=== PATIENT | male | born 1945 | race Caucasian/White ===

== ENCOUNTER 2016-12-24 10:57 | Emergency (ER) | payer MEDICARE, OTHER ==
[~2016-12-24] VITALS: Ht 175.3 cm; Wt 66.0 kg
[2016-12-24 11:03] VITALS: BP 112/70; PULSE 78; RESP 16; TEMP 97.9; O2SAT 97
--- NOTE | 2016-12-24 11:12 | PD ---
HPI Chief Complaint: Injury Time Seen by Provider: 11:10 Travel History International Travel<30 days: No Contact w/Intl Traveler<30days: No Traveled to known affect area: No History of Present Illness HPI [id number] male presents to emergency Department with right medial knee pain. Patient states he was up and moving this morning when he felt a pop when he twisted to one side and the right knee. He denies pain in this area which is worse with bearing weight. There is no significant effusion. No numbness tingling or other symptoms. He has no history of injury to this knee in the past. Pain currently is a 3 out of 10. Patient to 6 out of 10 with weightbearing. He has no known drug allergies. PFSH Past Medical History Hx Anticoagulant Therapy: No Cardiovascular Problems: Yes (PACEMAKER) Diabetes: No Social History Alcohol Use: Yes Tobacco Use: No Substance Use: No Allergies-Medications (Allergen,Severity, Reaction): Coded Allergies: No Known Allergies (Unverified , 12/24/16) Reported Meds & Prescriptions Reported Meds & Active Scripts Active Ibuprofen 600 Mg Tab 600 Mg PO Q6H PRN Reported Omeprazole 20 Mg Tab 20 Mg PO DAILY Review of Systems Except as stated in HPI: all other systems reviewed are Neg General / Constitutional: No: Fever Eyes: No: Visual changes HENT: No: Headaches Cardiovascular: No: Chest Pain or Discomfort Respiratory: No: Shortness of Breath Gastrointestinal: No: Abdominal Pain Genitourinary: No: Dysuria Musculoskeletal: No: Pain Skin: No Rash Neurologic: No: Weakness Psychiatric: No: Depression Endocrine: No: Polydipsia Hematologic/Lymphatic: No: Easy Bruising Physical Exam Narrative GENERAL: Patient appears no acute distress. SKIN: Warm and dry. Normal color. Normal turgor. No ecchymosis. HEAD: Atraumatic. Normocephalic. EYES: Pupils equal and round. No scleral icterus. No injection or drainage. ENT: No nasal bleeding or discharge. Mucous membranes pink and moist. NECK: Trachea midline. No JVD. CARDIOVASCULAR: Regular rate and rhythm. RESPIRATORY: No accessory muscle use. Clear to auscultation. Breath sounds equal bilaterally. GASTROINTESTINAL: Abdomen soft, non-tender, nondistended. Hepatic and splenic margins not palpable. MUSCULOSKELETAL: Extremities without clubbing, cyanosis, or edema. No obvious deformities. No significant effusion is noted in the right knee. Patient complains of pain along the medial joint line with extension and there is some valgus stress. Agata's is negative. NEUROLOGICAL: Awake and alert. No obvious cranial nerve deficits. Motor grossly within normal limits. Five out of 5 muscle strength in the arms and legs. Normal speech. PSYCHIATRIC: Appropriate mood and affect; insight and judgment normal. Data Data Last Documented VS Vital Signs Date Time Temp Pulse Resp B/P Pulse Ox O2 Delivery O2 Flow Rate FiO2 12/24/16 11:03 97.9 78 16 112/70 97 Orders Knee, Complete (4vws) (12/24/16 11:12) Ice/Cold Pack (12/24/16 11:12) ^ Knee Immobilizer (12/24/16 11:42) Crutches (12/24/16 11:48) MDM Medical Decision Making Medical Screen Exam Complete: Yes Emergency Medical Condition: Yes Differential Diagnosis Right knee sprain. Cartilage tear. Fracture. Narrative Course Patient is medically stable at time of exam. Ice packs applied to the right knee. X-ray of the right knee is ordered. X-ray shows no acute fracture, dislocation, or effusion. Per radiologist. Knee immobilizer was placed. Patient is given ibuprofen 600 mg 4 times a day when necessary pain. #40. Patient is to use ice and elevation and ambulate as tolerated with knee immobilizer crutches. Patient follow with his primary care physician in one week if symptoms are not improving. Patient can return with worsening symptoms as needed. Diagnosis Primary Impression: Right knee sprain Qualified Code: S83.91XA - Sprain of right knee, unspecified ligament, initial encounter Additional Impression: Right medial knee pain Referrals: Primary Care Physician Patient Instructions: General Instructions, Knee Immobilizer (ED), Knee Sprain (ED) Departure Forms: Work Release Special Instructions: Limited standing and walking for the next week. Additional Instructions: X-ray shows no acute fracture, dislocation, or effusion. Per radiologist. Knee immobilizer was placed. Patient is given ibuprofen 600 mg 4 times a day when necessary pain. #40. Patient is to use ice and elevation and ambulate as tolerated with knee immobilizer crutches. Patient follow with his primary care physician in one week if symptoms are not improving. Patient can return with worsening symptoms as needed. Med/Other Pt SpecificInfo: Prescription(s) given Scripts Ibuprofen 600 Mg [id number] Mg PO Q6H PRN (Pain/Inflammation) #40 TAB Prov:Renetta Conteh 12/24/16 Disposition: 01 DISCHARGE HOME Condition: Stable Rehan Kumar Dec 24, 2016 11:12
[2016-12-24] MEDS ORDERED: OMEP20TA PO (11:13)
[2016-12-24] MEDS ORDERED: IBUP-232 PO (11:43)
--- NOTE | 2016-12-24 11:55 | RADHPO ---
EXAM DATE/TIME: 12/24/2016 11:23 [facility] COMPARISON: No previous studies available for comparison. INDICATIONS : Right knee pain; twisted knee this morning. MEDICAL HISTORY : None. SURGICAL HISTORY : None. ENCOUNTER: Initial ACUITY: 1 day PAIN SCORE: 5/10 LOCATION: Right knee FINDINGS: Four view examination of the right knee demonstrates no evidence of fracture or dislocation. Bony mi neralization is normal. The articular surfaces are intact. There is mild fullness in the suprapatell ar bursa region consistent with joint effusion. CONCLUSION: Small joint effusion. Eliazar Sharp MD on December 24, 2016 at 11:53 Board Certified Radiologist. This report was verified electronically.
== END 2016-12-24 12:06 | disposition home or self-care (01) ==
LOC: PHEFT 10:57
DX: S83.91XA Sprain of unspecified site of right knee, initial encounter (principal); Z95.0 Presence of cardiac pacemaker; X50.1XXA Overexertion from prolonged static or awkward postures, initial encounter; Y93.9 Activity, unspecified; Y92.9 Unspecified place or not applicable; Y99.9 Unspecified external cause status
CPT/HCPCS: 73564; 99283; E0113; L1830

== ENCOUNTER 2017-11-04 09:55 | Observation (INO) | payer MEDICARE, OTHER ==
[~2017-11-04] VITALS: Ht 167.6 cm; Wt 56.0 kg
[~2017-11-04 09:55] MED LIST: IBUP-232 PO; OMEP20TA93 PO
[2017-11-04 10:06] VITALS: BP 134/67; PULSE 76; RESP 17; TEMP 98.4; O2SAT 98
[2017-11-04] MEDS ORDERED: GABA100C4 PO (10:41)
[2017-11-04] MEDS ORDERED: METO5TAB PO (10:41)
[2017-11-04] MEDS ORDERED: ZOFR8TAB PO (10:41)
[2017-11-04] MEDS ORDERED: FOLI400T PO (10:41)
[2017-11-04] MEDS ORDERED: PROC10TA PO (10:41)
[2017-11-04] MEDS ORDERED: METO25TA3 PO (10:41)
[2017-11-04] MEDS ORDERED: MAPA500T13 PO (10:41)
[2017-11-04] MEDS ORDERED: OXYC1CAP PO (10:41)
[2017-11-04] MEDS ORDERED: XARE15TA PO (10:42)
--- NOTE | 2017-11-04 11:06 | RADRPT ---
EXAM DATE/TIME: 11/04/2017 10:45 [facility] COMPARISON: No previous studies available for comparison. INDICATIONS : Vomiting post chemotherapy for mesothelioma. MEDICAL HISTORY : Mesothelioma SURGICAL HISTORY : Port placement , pacemaker, sx for lung tumors ENCOUNTER: Initial ACUITY: 3 days PAIN SCORE: 2/10 LOCATION: chest FINDINGS: Single portable frontal view the chest shows a moderate sized pneumothorax involving the left apex. T here is consolidation involving the left lung base. Right lung is hyperinflated and clear. Heart is n ormal in size. Dual-lead pacing device overlies the left chest. Power port overlies the right chest. CONCLUSION: 1. Moderate size left apical pneumothorax. 2. Left lower lobe atelectasis versus infiltrate. Gilbert Olson Jr., MD on November 04, 2017 at 11:04 Board Certified Radiologist. This report was verified electronically.
[2017-11-04 11:12] LABS: AUTOMATED NEUTROPHIL # 5.7 TH/MM3 (1.8-7.7); BASOPHIL % 0.4 % (0.0-2.0); EOSINOPHIL # 0.1 TH/MM3 (0-0.4); EOSINOPHIL % 0.8 % (0.0-4.0); HEMATOCRIT 37.7 % (39.0-51.0); HEMOGLOBIN 12.7 GM/DL (13.0-17.0); LYMPH % 6.1 % (9.0-44.0); LYMPHOCYTE # 0.4 TH/MM3 (1.0-4.8); MEAN CELL VOLUME 96.9 FL (80.0-100.0); MEAN CORPUSCULAR HEMOGLOBIN 32.7 PG (27.0-34.0); MEAN CORPUSCULAR HGB CONC 33.7 % (32.0-36.0); MEAN PLATELET VOLUME 8.3 FL (7.0-11.0); MONO % 2.1 % (0.0-8.0); MONOCYTE # 0.1 TH/MM3 (0-0.9); NEUT % 90.6 % (16.0-70.0); PLATELET COUNT 247 TH/MM3 (150-450); RED BLOOD COUNT 3.89 MIL/MM3 (4.50-5.90); RED CELL DISTRIBUTION WIDTH 16.6 % (11.6-17.2); WHITE BLOOD COUNT 6.3 TH/MM3 (4.0-11.0)
[2017-11-04 11:29] LABS: ALBUMIN 4.1 GM/DL (3.4-5.0); ALT (GPT) 27 U/L (12-78); AST (GOT) 21 U/L (15-37); BICARBONATE 27.9 MEQ/L (21.0-32.0); BLOOD UREA NITROGEN 19 MG/DL (7-18); CALCIUM 9.6 MG/DL (8.5-10.1); CHLORIDE 101 MEQ/L (98-107); CREATININE 1.12 MG/DL (0.60-1.30); GLOMERULAR FILTRATION RATE 65 ML/MIN (>89); GLUCOSE,RANDOM 107 MG/DL (74-106); SODIUM (NA) 136 MEQ/L (136-145)
[2017-11-04 11:31] LABS: ALKALINE PHOSPHATASE 107 U/L (45-117); TOTAL BILIRUBIN ADULT 1.7 MG/DL (0.2-1.0); TOTAL PROTEIN 7.9 GM/DL (6.4-8.2)
[2017-11-04 11:32] LABS: TROPONIN I 0.03 NG/ML (0.02-0.05)
[2017-11-04 11:40] VITALS: BP 150/74; PULSE 69; RESP 21; O2SAT 97
[2017-11-04] MEDS ORDERED: SODIUM CHLOR 0.9% 1000 ML INJ 1,000 ML IV ONE (12:00)
[2017-11-04] MEDS ORDERED: ACETAMINOPHEN 325 MG TAB PO PRN (12:45)
[2017-11-04] MEDS ORDERED: LACTULOSE SYRUP 20 GM/30 ML CUP PO PRN (12:45)
[2017-11-04] MEDS ORDERED: NALOXONE HCL 0.4 MG/ML AMP IV PUSH PRN (12:45)
[2017-11-04] MEDS ORDERED: BISACODYL 10 MG SUPP RECTAL PRN (12:45)
[2017-11-04] MEDS ORDERED: SODIUM CHLORIDE 0.9% FLUSH 10 ML FLUSH IV FLUSH PRN (12:45)
[2017-11-04] MEDS ORDERED: ACETAMINOPHEN 500 MG CPLT PO PRN (12:45)
[2017-11-04] MEDS ORDERED: METOCLOPRAMIDE HCL 10 MG/2 ML VIAL IV PUSH PRN (12:45)
[2017-11-04] MEDS ORDERED: PROCHLORPERAZINE MALEATE 10 MG TAB PO PRN (12:45)
[2017-11-04] MEDS ORDERED: MAGNESIUM HYDROXIDE SUSP 30 ML CUP PO PRN (12:45)
[2017-11-04] MEDS ORDERED: SENNOSIDES 8.6 MG TAB PO PRN (12:45)
--- NOTE | 2017-11-04 13:21 | PD ---
HPI Chief Complaint: GI Complaint Time Seen by Provider: 10:17 Travel History International Travel<30 days: No Contact w/Intl Traveler<30days: No Traveled to known affect area: No History of Present Illness HPI 72-year-old male with a history of mesothelioma, who presents today with complaints of nausea vomiting 2-3 days. Patient states that he had his first chemo this past week. He states that since then he has had nausea vomiting. He denies any diarrhea. He denies any fevers but he does state that he has felt chills. The patient's states that he has had a history of gastroparesis in the past. The patient also has had a pleurectomy done in [place] in August. He denies any acute shortness of breath or productive cough. He states that now he is dry heaving just clear liquid fluid. No other complaints at the time of my examination. PFSH Past Medical History Hx Anticoagulant Therapy: Yes (xarelto) Cancer: Yes Cardiovascular Problems: Yes (PACEMAKER) Diabetes: No Diminished Hearing: No Tetanus Vaccination: < 5 Years Influenza Vaccination: Yes Past Surgical History Cardiac Surgery: Yes (PACEMAKER) Pacemaker: Yes (MEDTRONIC) Thoracic Surgery: Yes (PORT R SUBCLAVIAN, (L LUNG, DIAPHRAM AND HEART METASTIC CA SX.) ) Social History Alcohol Use: No Tobacco Use: No Substance Use: No Allergies-Medications (Allergen,Severity, Reaction): Coded Allergies: No Known Allergies (Unverified Adverse Reaction, Unknown, 11/04/17) Reported Meds & Prescriptions Reported Meds & Active Scripts Active Reported Quetiapine (Quetiapine Fumarate) 25 Mg Tab 12.5 Mg PO HS Xarelto (Rivaroxaban) 15 Mg Tab 15 Mg PO DAILY Gabapentin 100 Mg Cap 100 Mg PO TID Metoclopramide (Metoclopramide HCl) 5 Mg Tab 5 Mg PO HS Oxycodone (Oxycodone HCl) 5 Mg Cap 5 Mg PO Q8H PRN Mapap Extra Strength (Acetaminophen) 500 Mg Tab 1,000 Mg PO TID PRN Metoprolol Tartrate 25 Mg Tab 25 Mg PO BID Zofran (Ondansetron HCl) 8 Mg Tab 8 Mg PO TID Prochlorperazine Maleate 10 Mg Tab 10 Mg PO Q6H PRN Folic Acid 0.4 Mg Tab 1 Mg PO DAILY Omeprazole 20 Mg Tab 20 Mg PO DAILY Review of Systems Except as stated in HPI: all other systems reviewed are Neg General / Constitutional: Positive: Chills, No: Fever HENT: No: Headaches, Lightheadedness, Neck Pain Cardiovascular: No: Chest Pain or Discomfort, Palpitations Respiratory: No: Cough, Shortness of Breath Gastrointestinal: Positive: Nausea, Vomiting, Abdominal Pain (Crampy), No: Diarrhea Genitourinary: Positive: Decreased Urinary Output, No: Dysuria Musculoskeletal: Positive: Weakness, No: Pain Neurologic: Positive: Weakness (Generalized), No: Dizziness, Headache, Change in Mentation Physical Exam Narrative GENERAL: Well-developed well-nourished male in no acute respiratory distress. SKIN: Focused skin assessment warm/dry. HEAD: Atraumatic. Normocephalic. EYES: Pupils equal and round. No scleral icterus. No injection or drainage. ENT: No nasal bleeding or discharge. Mucous membranes pink and dry. NECK: Trachea midline. Supple. CARDIOVASCULAR: Regular rate and rhythm. No murmur appreciated. RESPIRATORY: Diminished breath sounds on the left lung field. Right lung field clear. GASTROINTESTINAL: Abdomen soft, non-tender, nondistended. Hepatic and splenic margins not palpable. No rebound or guarding. MUSCULOSKELETAL: No obvious deformities. No clubbing. No cyanosis. No edema. NEUROLOGICAL: Awake and alert. No obvious cranial nerve deficits. Motor grossly within normal limits. Normal speech. Data Data Last Documented VS Vital Signs Date Time Temp Pulse Resp B/P (MAP) Pulse Ox O2 Delivery O2 Flow Rate FiO2 11/04/17 11:40 69 21 150/74 (99) 97 Room Air 11/04/17 10:06 98.4 Orders Orders Complete Blood Count With Diff (11/04/17 10:17) Comprehensive Metabolic Panel (11/04/17 10:17) Lipase (11/04/17 10:17) Urinalysis - C+S If Indicated (11/04/17 10:17) Chest, Single Ap (11/04/17 10:17) Iv Access Insert/Monitor (11/04/17 10:17) Ecg Monitoring (11/04/17 10:17) Oximetry (11/04/17 10:17) Electrocardiogram (11/04/17 10:19) Ckmb (Isoenzyme) Profile (11/04/17 10:19) Troponin I (11/04/17 10:19) Sodium Chlor 0.9% 1000 Ml Inj (Ns 1000 M (11/04/17 12:00) Place In Observation (11/04/17 ) Vital Signs (Adult) Q4H (11/04/17 12:37) Activity Oob With Assistance (11/04/17 12:37) Intake + Output CINDY.QSHIFT (11/04/17 12:37) Sodium Chlor 0.9% 1000 Ml Inj (Ns 1000 M (11/04/17 12:37) Sodium Chloride 0.9% Flush (Ns Flush) (11/04/17 12:45) Sodium Chloride 0.9% Flush (Ns Flush) (11/04/17 21:00) Acetaminophen (Tylenol) (11/04/17 12:45) Ondansetron Inj (Zofran Inj) (11/04/17 12:45) Basic Metabolic Panel (Bmp) (11/05/17 06:00) Complete Blood Count With Diff (11/05/17 06:00) Resp Oxygen Stephen C Titrat 1-4 L (11/04/17 ) Pt Request For Service (11/04/17 12:37) Case Management Consult (11/04/17 12:37) Enoxaparin Inj (Lovenox Inj) (11/04/17 14:00) Scd Bilateral/Knee High CINDY.BID (11/04/17 12:37) Al Bilateral/Knee High CINDY.QSHIFT (11/04/17 12:37) Naloxone Inj (Narcan Inj) (11/04/17 12:45) Docusate Sodium-Senna (Vicki-Colace) (11/04/17 21:00) Magnesium Hydroxide Liq (Milk Of Magnesi (11/04/17 12:45) Sennosides (Senokot) (11/04/17 12:45) Bisacodyl Supp (Dulcolax Supp) (11/04/17 12:45) Lactulose Liq (Lactulose Liq) (11/04/17 12:45) Acetaminophen (Tylenol) (11/04/17 12:45) Folic Acid (Folate) (11/05/17 09:00) Gabapentin (Neurontin) (11/04/17 13:00) Metoprolol Tartrate (Lopressor) (11/04/17 21:00) Oxycodone (Roxicodone) (11/04/17 12:45) Prochlorperazine Maleate (Compazine) (11/04/17 12:45) Rivaroxaban (Xarelto) (11/05/17 09:00) Pantoprazole (Protonix) (11/05/17 09:00) Metoclopramide Inj (Reglan Inj) (11/04/17 12:45) Admit Order (Ed Use Only) (11/04/17 14:00) Gabapentin (Neurontin) (11/04/17 14:00) Acetaminophen (Tylenol) (11/04/17 14:00) Labs Laboratory Tests Test 11/04/17 10:35 11/04/17 13:30 White Blood Count 6.3 TH/MM3 Red Blood Count 3.89 MIL/MM3 Hemoglobin 12.7 GM/DL Hematocrit 37.7 % Mean Corpuscular Volume 96.9 FL Mean Corpuscular Hemoglobin 32.7 PG Mean Corpuscular Hemoglobin Concent 33.7 % Red Cell Distribution Width 16.6 % Platelet Count 247 TH/MM3 Mean Platelet Volume 8.3 FL Neutrophils (%) (Auto) 90.6 % Lymphocytes (%) (Auto) 6.1 % Monocytes (%) (Auto) 2.1 % Eosinophils (%) (Auto) 0.8 % Basophils (%) (Auto) 0.4 % Neutrophils # (Auto) 5.7 TH/MM3 Lymphocytes # (Auto) 0.4 TH/MM3 Monocytes # (Auto) 0.1 TH/MM3 Eosinophils # (Auto) 0.1 TH/MM3 Basophils # (Auto) 0.0 TH/MM3 CBC Comment DIFF FINAL Differential Comment Blood Urea Nitrogen 19 MG/DL Creatinine 1.12 MG/DL Random Glucose 107 MG/DL Total Protein 7.9 GM/DL Albumin 4.1 GM/DL Calcium Level 9.6 MG/DL Alkaline Phosphatase 107 U/L Aspartate Amino Transf (AST/SGOT) 21 U/L Alanine Aminotransferase (ALT/SGPT) 27 U/L Total Bilirubin 1.7 MG/DL Sodium Level 136 MEQ/L Potassium Level 3.6 MEQ/L Chloride Level 101 MEQ/L Carbon Dioxide Level 27.9 MEQ/L Anion Gap 7 MEQ/L Estimat Glomerular Filtration Rate 65 ML/MIN Total Creatine Kinase 45 U/L Troponin I 0.03 NG/ML Lipase 113 U/L Urine Color YELLOW Urine Turbidity CLEAR Urine pH 6.5 Urine Specific [place] 1.017 Urine Protein 30 mg/dL Urine Glucose (UA) NEG mg/dL Urine Ketones 10 mg/dL Urine Occult Blood NEG Urine Nitrite NEG Urine Bilirubin NEG Urine Urobilinogen LESS THAN 2.0 MG/DL Urine Leukocyte Esterase NEG Urine RBC LESS THAN 1 /hpf Urine WBC 1 /hpf Urine Mucus FEW /lpf Microscopic Urinalysis Comment CULT NOT INDICATED MDM Medical Decision Making Medical Screen Exam Complete: Yes Emergency Medical Condition: Yes Differential Diagnosis Chemo related nausea vomiting versus dehydration versus metabolic derangement versus pneumonia versus gastroparesis Narrative Course This is a 72-year-old male with history of mesothelioma, who presents today with complaints of nausea vomiting times several days. Patient states been unable to hold anything down. He recently had his first chemo treatment. The patient has a history of gastroparesis. The patient had treatment in [place] where he had a pleurectomy for his mesothelioma. Chest x-ray shows a apical pneumothorax. I spoke with his thoracic surgeons PA in [place] and she reports that his last chest x-ray in October had a loculated pneumothorax. She did send a screen shot of the lateral view however this was not comparable because of the view. The patient is in no acute respiratory distress. He is noted to be dehydrated. He has been given IV fluids. He will be admitted for IV hydration. We will do serial chest x-rays to follow the pneumothorax. The case was discussed with the [facility] who is agreeable to the admission. Diagnosis Primary Impression: Chemotherapy induced nausea and vomiting Additional Impressions: Dehydration Left apical pneumothorax Mesothelioma (pleural) Admitting Information Admitting Physician Requests: Admit Keith Villalobos MD Nov 04, 2017 13:21
[2017-11-04] MEDS ORDERED: ACETAMINOPHEN 325 MG TAB PO ONE (14:00)
[2017-11-04] MEDS ORDERED: GABAPENTIN 100 MG CAP PO ONE (14:00)
[2017-11-04] MEDS ORDERED: ENOXAPARIN SODIUM 40 MG/0.4 ML SYRINGE SQ SCH (14:00)
[2017-11-04 14:07] LABS: BILIRUBIN, URINE NEG (NEG); BLOOD, URINE NEG (NEG); GLUCOSE,URINE NEG (NEG); KETONE, URINE 10 mg/dL (NEG); MUCUS URINE FEW /lpf (OCC); NITRITE,URINE NEG (NEG); PH, URINE 6.5 (5.0-8.5); URINE COLOR YELLOW (YELLW/STRAW); URINE LEUKOCYTE ESTERASE NEG (NEG)
[2017-11-04] MEDS: SODIUM CHLOR 0.9% 1000 ML INJ 1,000 ML IV SCH ×2 (14:30→22:47)
[2017-11-04] MEDS: GABAPENTIN 100 MG CAP PO SCH ×2 (14:30→16:47)
[2017-11-04 14:31] VITALS: BP 178/92; PULSE 78; RESP 20; O2SAT 97
--- NOTE | 2017-11-04 14:37 | HHI.HP ---
[facility] Primary Care Physician Zhao Liu MD, PhD Admission Diagnosis intractable nausea/vomiting, smaill left apical pneumothorax, mesoth Diagnoses: Chief Complaint: nausea/vomiting Travel History International Travel<30 Days: No Contact w/Intl Traveler <30 Da: No Traveled to Known Affected Are: No History of Present Illness Very pleasant 72-year-old male with a history of mesothelioma, who presents today with complaints of nausea vomiting 2-3 days. Patient states that he had his first chemo 4 days ago. He states that since then he has had nausea and vomiting. He denies any diarrhea. He denies any fevers but he does state that he has felt chills. The patient's states that he has had a history of gastroparesis in the past. The patient also has had a pleurectomy done in [place] in August. He denies any acute shortness of breath or productive cough. He states that now he is dry heaving just clear liquid fluid. Says he would like to try to eat some food. No chest pain or sob. He is sattign well on room air. No lightheadedness. no palpitations. Review of Systems Except as stated in HPI: all other systems reviewed are Neg Past Family Social History Past Medical History mesothelioma HTN Past Surgical History Pacemaker Subclavian Port Left pleural lung and diaphragm partial resection Reported Medications Last Impressions Chest X-Ray 11/04/17 1017 Signed Impressions: Service Date/Time: Saturday, November 04, 2017 10:45 - CONCLUSION: 1. Moderate size left apical pneumothorax. 2. Left lower lobe atelectasis versus infiltrate. Gilbert Olson Jr., MD Allergies: Coded Allergies: No Known Allergies (Unverified Adverse Reaction, Unknown, 11/04/17) Family History Father thyroid problems. Otherwise healthy family Social History Denies EtOH use, tobacco use or illicit drug use. Physical Exam Vital Signs Vital Signs Date Time Temp Pulse Resp B/P (MAP) Pulse Ox O2 Delivery O2 Flow Rate FiO2 11/04/17 11:40 69 21 150/74 (99) 97 Room Air 11/04/17 10:06 98.4 76 17 134/67 (43) 98 Physical Exam GENERAL: This is a very pleasant 72 yo male, skinny, well-nourished, well- developed patient, in no apparent distress. SKIN: No rashes, ecchymoses or lesions. Cool and dry. HEAD: Atraumatic. Normocephalic. No temporal or scalp tenderness. EYES: Pupils equal round and reactive. Extraocular motions intact. No scleral icterus. No injection or drainage. ENT: Nose without bleeding, purulent drainage or septal hematoma. Throat without erythema, tonsillar hypertrophy or exudate. Uvula midline. Airway patent. NECK: Trachea midline. No JVD or lymphadenopathy. Supple, nontender, no meningeal signs. CARDIOVASCULAR: Regular rate and rhythm without murmurs, gallops, or rubs. RESPIRATORY: Clear to auscultation. Breath sounds equal bilaterally. No wheezes , rales, or rhonchi. GASTROINTESTINAL: Abdomen soft, non-tender, nondistended. No hepato-splenomegaly , or palpable masses. No guarding. MUSCULOSKELETAL: Extremities without clubbing, cyanosis, or edema. No joint tenderness, effusion, or edema noted. No calf tenderness. Negative Homans sign bilaterally. NEUROLOGICAL: Awake and alert. Cranial nerves II through XII intact. Motor and sensory grossly within normal limits. Five out of 5 muscle strength in all muscle groups. Normal speech. Laboratory Laboratory Tests Test 11/04/17 10:35 11/04/17 13:30 White Blood Count 6.3 Red Blood Count 3.89 Hemoglobin 12.7 Hematocrit 37.7 Mean Corpuscular Volume 96.9 Mean Corpuscular Hemoglobin 32.7 Mean Corpuscular Hemoglobin Concent 33.7 Red Cell Distribution Width 16.6 Platelet Count 247 Mean Platelet Volume 8.3 Neutrophils (%) (Auto) 90.6 Lymphocytes (%) (Auto) 6.1 Monocytes (%) (Auto) 2.1 Eosinophils (%) (Auto) 0.8 Basophils (%) (Auto) 0.4 Neutrophils # (Auto) 5.7 Lymphocytes # (Auto) 0.4 Monocytes # (Auto) 0.1 Eosinophils # (Auto) 0.1 Basophils # (Auto) 0.0 CBC Comment DIFF FINAL Differential Comment Blood Urea Nitrogen 19 Creatinine 1.12 Random Glucose 107 Total Protein 7.9 Albumin 4.1 Calcium Level 9.6 Alkaline Phosphatase 107 Aspartate Amino Transf (AST/SGOT) 21 Alanine Aminotransferase (ALT/SGPT) 27 Total Bilirubin 1.7 Sodium Level 136 Potassium Level 3.6 Chloride Level 101 Carbon Dioxide Level 27.9 Anion Gap 7 Estimat Glomerular Filtration Rate 65 Total Creatine Kinase 45 Troponin I 0.03 Lipase 113 Urine Color YELLOW Urine Turbidity CLEAR Urine pH 6.5 Urine Specific Bastian 1.017 Urine Protein 30 Urine Glucose (UA) NEG Urine Ketones 10 Urine Occult Blood NEG Urine Nitrite NEG Urine Bilirubin NEG Urine Urobilinogen LESS THAN 2.0 Urine Leukocyte Esterase NEG Urine RBC LESS THAN 1 Urine WBC 1 Urine Mucus FEW Microscopic Urinalysis Comment CULT NOT INDICATED Result Diagram: 11/04/17 1035 11/04/17 1035 Imaging Last Impressions Chest X-Ray 11/04/17 1017 Signed Impressions: Service Date/Time: Saturday, November 04, 2017 10:45 - CONCLUSION: 1. Moderate size left apical pneumothorax. 2. Left lower lobe atelectasis versus infiltrate. MD Larry Byrd Jr. VTE Risk Assessment Caprini VTE Risk Assessment: Mod/High Risk (score >= 2) Caprini Risk Assessment Model Point Value = 1 Point Value = 2 Point Value = 3 Point Value = 5 Age 41-60 Minor surgery BMI > 25 kg/m2 Swollen legs Varicose veins or History of unexplained or recurrent spontaneous Oral contraceptives or hormone replacement Sepsis (< 1 month) Serious lung disease, including pneumonia (< 1 month) Abnormal pulmonary function Acute myocardial infarction Congestive heart failure (< 1 month) History of inflammatory bowel disease Medical patient at bed rest Age 61-74 Arthroscopic surgery Major open surgery (> 45 min) Laparoscopic surgery (> 45 min) Malignancy Confined to bed (> 72 hours) Immobilizing plaster cast Central venous access Age >= 75 History of VTE Family history of VTE Factor V Leiden Prothrombin [id number] Lupus anticoagulant Anticardiolipin antibodies Elevated serum homocysteine Heparin-induced thrombocytopenia Other congenital or acquired thrombophilia Stroke (< 1 month) Elective arthroplasty Hip, pelvis, or leg fracture Acute spinal cord injury (< 1 month) Prophylaxis Regimen Total Risk Factor Score Risk Level Prophylaxis Regimen 0-1 Low Early ambulation 2 Moderate Order ONE of the following: *Sequential Compression Device (SCD) *Heparin 5000 units SQ BID 3-4 Higher Order ONE of the following medications: *Heparin 5000 units SQ TID *Enoxaparin/Lovenox 40 mg SQ daily (WT < 150 kg, CrCl > 30 mL/min) *Enoxaparin/Lovenox 30 mg SQ daily (WT < 150 kg, CrCl > 10-29 mL/min) *Enoxaparin/Lovenox 30 mg SQ BID (WT < 150 kg, CrCl > 30 mL/min) AND/OR *Sequential Compression Device (SCD) 5 or more Highest Order ONE of the following medications: *Heparin 5000 units SQ TID (Preferred with Epidurals) *Enoxaparin/Lovenox 40 mg SQ daily (WT < 150 kg, CrCl > 30 mL/min) *Enoxaparin/Lovenox 30 mg SQ daily (WT < 150 kg, CrCl > 10-29 mL/min) *Enoxaparin/Lovenox 30 mg SQ BID (WT < 150 kg, CrCl > 30 mL/min) AND *Sequential Compression Device (SCD) Assessment and Plan Assessment and Plan H/o mesothelioma s/p surgical resection and undergoing chemo with oncologist in [place] (1st chemo was 4 days ago) Moderate size left apical pneumothorax, per imaging reviewed with [place] oncology by Dr Villalobos ER doctor and at baseline Patient is satting wellon room air Will repeat CXR tomorrow AM or at any time ic change in clinical status Intractable nausea and vomiting post chemo related Patient received his 1st chemo 4 days ago with his oncologist in [place] for mesothelioma IVF Antiemetics as need healthy heart diet Chronic medical problems appears at baseline restart home meds as appropriate DC tomorrow if tolerates food and CXR at baseline Discussed Condition With patient, his at bedside, nurse, ED physician Maira Pimentel MD Nov 04, 2017 14:37
[2017-11-04 16:00] VITALS: BP 144/76; PULSE 75; RESP 20; TEMP 96.4; O2SAT 96
[2017-11-04] MEDS: ONDANSETRON HCL 4 MG/2 ML VIAL IVP PRN ×2 (16:47→22:49)
[2017-11-04] MEDS ORDERED: ENALAPRILAT 2.5 MG/2 ML VIAL IV PUSH PRN (18:30)
[2017-11-04] MEDS: IBUPROFEN 200 MG TAB PO PRN (18:46)
[2017-11-04 19:53] VITALS: BP 143/74; PULSE 70; RESP 16; TEMP 98.2; O2SAT 97
[2017-11-04] MEDS: SODIUM CHLORIDE 0.9% FLUSH 10 ML FLUSH IV FLUSH SCH (20:35)
[2017-11-04] MEDS: DOCUSATE SODIUM 50 MG/SENNA 8.6 MG TAB PO SCH (20:35)
[2017-11-04] MEDS: METOPROLOL TARTRATE 25 MG TAB PO SCH (20:35)
[2017-11-04] MEDS ORDERED: QUET1TAB7 PO (20:39)
[2017-11-05 04:26] VITALS: BP 164/77; PULSE 74; RESP 16; TEMP 98.4; O2SAT 96
[2017-11-05] MEDS: ONDANSETRON HCL 4 MG/2 ML VIAL IVP PRN (05:48)
--- NOTE | 2017-11-05 06:39 | RADRPT ---
EXAM DATE/TIME: 11/05/2017 06:17 [place] COMPARISON: CHEST SINGLE AP, November 04, 2017, 10:45. INDICATIONS : Short of breath. MEDICAL HISTORY : Mesothelioma. SURGICAL HISTORY : Port placement , pacemaker, sx for lung tumors ENCOUNTER: Subsequent ACUITY: 2 days PAIN SCORE: 0/10 LOCATION: Bilateral chest FINDINGS: Portable AP view of the chest demonstrates a normal-sized cardiac silhouette. Left chest wall cardiac pacing device remains present. Right chest wall [id number] is in place. Patient is rotated to the left. There is severe left basilar pleural-parenchymal opacity mild consolidation in the left upper lung zone. There is stable line at the apex of the left lung with a large area of lucency at the apex of the left hemithorax. Right lung is mildly hyperinflated and demonstrates no acute finding. Bones demonstrate no acute abnormality. CONCLUSION: 1. Stable chest x-ray with lucency at the left apex which could represent a pneumothorax versus large bulla. 2. There is signs of volume loss in the left lung with left basilar pleural-parenchymal opacity which could represent pleural effusion, airspace consolidation, and/or volume loss. 3. There is increased airspace consolidation in the left midlung. Sheldon Mathews MD on November 05, 2017 at 6:36 Board Certified Radiologist. This report was verified electronically.
[2017-11-05] MEDS: IBUPROFEN 200 MG TAB PO PRN (07:34)
[2017-11-05 08:00] VITALS: BP 141/77; PULSE 74; RESP 20; TEMP 98.4; O2SAT 94
[2017-11-05] MEDS: SODIUM CHLORIDE 0.9% FLUSH 10 ML FLUSH IV FLUSH SCH (09:00)
[2017-11-05] MEDS ORDERED: RIVAROXABAN 15 MG TAB PO SCH (09:00)
[2017-11-05] MEDS ORDERED: FOLIC ACID 1 MG TAB PO SCH (09:00)
[2017-11-05] MEDS ORDERED: PANTOPRAZOLE SOD 20 MG DELAYED RELEASE TAB PO SCH (09:00)
[2017-11-05] MEDS: DOCUSATE SODIUM 50 MG/SENNA 8.6 MG TAB PO SCH (09:52)
[2017-11-05] MEDS: SODIUM CHLOR 0.9% 1000 ML INJ 1,000 ML IV SCH (09:52)
[2017-11-05] MEDS: METOPROLOL TARTRATE 25 MG TAB PO SCH (09:52)
[2017-11-05] MEDS: GABAPENTIN 100 MG CAP PO SCH ×2 (09:52→12:44)
[2017-11-05 12:00] VITALS: BP 149/81; PULSE 69; RESP 20; TEMP 97.3; O2SAT 96
--- NOTE | 2017-11-05 13:20 | HHI.DCPOC ---
Discharge Care Plan Diagnosis: (1) Chemotherapy induced nausea and vomiting Goals to Promote Your Health * To prevent worsening of your condition and complications * To maintain your health at the optimal level Directions to Meet Your Goals Take your medications as prescribed Follow your dietary instruction Follow activity as directed Keep your appointments as scheduled Take your immunizations and boosters as scheduled If your symptoms worsen call your PCP, if no PCP go to Urgent Care Center or Emergency Room Smoking is Dangerous to Your Health. Avoid second hand smoke Call the 24-hour hour crisis hotline for domestic abuse at Madhavi Bond PA-C Nov 05, 2017 1:20 pm
--- NOTE | 2017-11-05 13:59 | HHI.PR ---
Subjective Remarks Follow-up chemotherapy-induced nausea and vomiting. Improved GI symptoms tolerating diet. Chest x-ray results discussed with patient history of pneumothorax which is stable. Denies pneumonia symptoms. Patient to see his oncologist tomorrow and wants to be discharged today discussed with nursing Objective Vitals Vital Signs Date Time Temp Pulse Resp B/P (MAP) Pulse Ox O2 Delivery O2 Flow Rate FiO2 11/05/17 12:00 97.3 69 20 149/81 (103) 96 11/05/17 08:00 98.4 74 20 141/77 (98) 94 11/05/17 04:26 98.4 74 16 164/77 (106) 96 11/04/17 19:53 98.2 70 16 143/74 (97) 97 11/04/17 16:00 96.4 75 20 144/76 (98) 96 11/04/17 15:58 11/04/17 14:31 78 20 178/92 (120) 97 Room Air I/O 11/04/17 11/04/17 11/04/17 11/05/17 11/05/17 11/05/17 07:00 15:00 23:00 07:00 15:00 23:00 Intake Total 1200 ml 720 ml Output Total 300 ml 1200 ml Balance 900 ml -480 ml Intake Oral 200 ml 720 ml IV Total 1000 ml Output Urine Total 300 ml 1200 ml # Voids 1 1 2 Result Diagram: 11/04/17 1035 11/04/17 1035 Imaging Last Impressions Chest X-Ray 11/05/17 0600 Signed Impressions: Service Date/Time: Sunday, November 05, 2017 06:17 - CONCLUSION: 1. Stable chest x-ray with lucency at the left apex which could represent a pneumothorax versus large bulla. 2. There is signs of volume loss in the left lung with left basilar pleural-parenchymal opacity which could represent pleural effusion, airspace consolidation, and/or volume loss. 3. There is increased airspace consolidation in the left midlung. Sheldon Mathews MD Objective Remarks GENERAL: Well-nourished, well-developed patient, in no apparent distress. SKIN: No rashes, ecchymoses or lesions. Cool and dry. CARDIOVASCULAR: Regular rate and rhythm without murmurs, gallops, or rubs. RESPIRATORY: Clear to auscultation. Breath sounds equal bilaterally. No wheezes , rales, or rhonchi. GASTROINTESTINAL: Abdomen soft, non-tender, nondistended. No guarding. MUSCULOSKELETAL: Extremities without clubbing, cyanosis, or edema. No joint tenderness, effusion, or edema noted. No calf tenderness. Negative Homans sign bilaterally. NEUROLOGICAL: Awake and alert. Cranial nerves II through XII intact. Motor and sensory grossly within normal limits. Five out of 5 muscle strength in all muscle groups. Normal speech. Procedures none A/P Problem List: (1) Chemotherapy induced nausea and vomiting ICD Code: R11.2 - Nausea with vomiting, unspecified; T45.1X5A - Adverse effect of antineoplastic and immunosuppressive drugs, initial encounter Assessment and Plan H/o mesothelioma s/p surgical resection and undergoing chemo with oncologist in [place] (1st chemo was 4 days ago). Stable to see his oncologist tomorrow Moderate size left apical pneumothorax, per imaging reviewed with [place] [facility]ology by Dr Villalobos ER doctor and at baseline. He is hemodynamically stable saturating well on room air. Repeat chest x-ray reviewed and stable. Developed pneumonia in the absence of symptoms as well as Intractable nausea and vomiting post chemo related. Improved Stable for discharge Discharge Planning Discharge patient to home Condition on discharge: Improved Regular Diet as tolerated Ad Latricia activity no driving Rx written: None Follow-up with primary care physician and oncology Jim Goldsmith MD Nov 05, 2017 13:59
[2017-11-05 14:19] LABS: AUTOMATED NEUTROPHIL # 3.1 TH/MM3 (1.8-7.7); BASOPHIL % 0.4 % (0.0-2.0); EOSINOPHIL # 0.1 TH/MM3 (0-0.4); EOSINOPHIL % 2.7 % (0.0-4.0); HEMATOCRIT 31.3 % (39.0-51.0); HEMOGLOBIN 10.9 GM/DL (13.0-17.0); LYMPH % 13.3 % (9.0-44.0); LYMPHOCYTE # 0.5 TH/MM3 (1.0-4.8); MEAN CORPUSCULAR HEMOGLOBIN 33.3 PG (27.0-34.0); MEAN CORPUSCULAR HGB CONC 34.7 % (32.0-36.0); MEAN PLATELET VOLUME 8.2 FL (7.0-11.0); MONO % 1.6 % (0.0-8.0); MONOCYTE # 0.1 TH/MM3 (0-0.9); PLATELET COUNT 202 TH/MM3 (150-450); RED BLOOD COUNT 3.26 MIL/MM3 (4.50-5.90); RED CELL DISTRIBUTION WIDTH 16.3 % (11.6-17.2); WHITE BLOOD COUNT 3.8 TH/MM3 (4.0-11.0)
[2017-11-05 14:47] LABS: BICARBONATE 22.5 MEQ/L (21.0-32.0); CREATININE 0.81 MG/DL (0.60-1.30)
[2017-11-05] MEDS ORDERED: POTASSIUM CHLORIDE 20 MEQ CONTROLLED RELEASE TAB PO ONE (15:00)
--- NOTE | 2017-11-06 07:49 | EKG ---
Date Performed: 11/04/2017 Time Performed: 10:35:12 PTAGE: 72 years EK% atrial pacing ST-T abnormality, cannot exclude ischemia ABNORMAL ECG NO PREVIOUS TRACING DOCTOR: Oswald Leonard Interpretating Date/Time 11/06/2017 07:48:21
== END 2017-11-05 16:17 | disposition home or self-care (01) ==
LOC: NEPE 09:55 → NEDA 14:02 → NEPHCDU 15:57
PROVIDERS: ADMIT Internal Medicine; ATTEND Internal Medicine
DX: R11.2 Nausea with vomiting, unspecified (principal); T45.1X5A Adverse effect of antineoplastic and immunosuppressive drugs, initial encounter; C45.9 Mesothelioma, unspecified; E86.0 Dehydration; I10 Essential (primary) hypertension; R94.31 Abnormal electrocardiogram [ECG] [EKG]; J18.9 Pneumonia, unspecified organism; K31.84 Gastroparesis; J93.9 Pneumothorax, unspecified; Z79.01 Long term (current) use of anticoagulants
CPT/HCPCS: 71045; 80048; 80053; 81001; 82550; 83690; 84484; 85025; 93005; 96361; 96374; 96375; 96376; 97162; 99285; G0378; G8987; G8988; J2405; J2765; J7030